=== PATIENT | female | born 2000 | race Caucasian/White ===

== ENCOUNTER → 2023-11-30 | Outpatient (CLI) | payer BC ==
[2023-11-30 10:01] LABS: SODIUM 141 mmol/L (136-145)
[2023-11-30 10:02] LABS: ALBUMIN 4.3 g/dL (3.5-5.0)
[2023-11-30 10:03] LABS: BASO # 0.02 K/mm3 (0.02-0.10); CALCIUM 9.8 mg/dL (8.3-10.5); EOS # 0.07 K/mm3 (0.04-0.40); EOS % 1.2 % (1.0-5.0); HEMATOCRIT 42.4 % (37.0-47.0); LYMPH# 1.98 K/mm3 (1.50-4.00); MEAN CELL VOLUME 87 fl (78-100); MEAN CORPUSCULAR HEMOGLOBIN 29 pg (27-31); MEAN CORPUSCULAR HGB CONC 33 g/dL (33-37); MEAN PLATELET VOLUME 10.2 fl (7.4-10.4); MONO # 0.47 K/mm3 (0.20-0.80); NEU # 3.19 K/mm3 (1.40-6.50); PLATELET COUNT 268 K/mm3 (130-400); RED BLOOD COUNT 4.87 M/mm3 (4.10-5.30); RED CELL DISTRIBUTION WIDTH 12.5 % (11.5-14.5); WHITE BLOOD COUNT 5.7 K/mm3 (4.8-10.8)
[2023-11-30 10:04] LABS: GLUCOSE 79 mg/dL (65-105); TOTAL PROTEIN 7.2 g/dL (6.4-8.3)
[2023-11-30 10:05] LABS: CARBON DIOXIDE 22 mmol/L (22-29)
[2023-11-30 10:06] LABS: TOTAL BILIRUBIN 0.4 mg/dL (0.2-1.2)
[2023-11-30 10:09] LABS: AST-SGOT 15 U/L (5-34)
[2023-11-30 10:11] LABS: ALT/SGPT 16 U/L (0-55)
== END ==
LOC: LAB 09:38
PROVIDERS: Physician Assistant
DX: Z13.220 Encounter for screening for lipoid disorders (principal); Z13.1 Encounter for screening for diabetes mellitus; N91.2 Amenorrhea, unspecified; R53.83 Other fatigue